=== PATIENT | female | born 1940 | race Caucasian/White ===

== ENCOUNTER 2018-07-16 23:11 | Emergency (ER) | payer MEDICARE, OTHER ==
[2018-07-16 23:20] VITALS: RESP 16
--- NOTE | 2018-07-17 01:23 | ED PDOC ---
HPI: Psych/Substance Abuse Time Seen by Provider: 07/16/18 23:31 Chief Complaint (Nursing): Psychiatric Evaluation Chief Complaint (Provider): Psychiatric Evaluation History Per: Patient, Family (daughters) History/Exam Limitations: no limitations Current Symptoms Are (Timing): Still Present Suicide/Self Injury Attempted (Context): None Modifying Factor(s): None Associated Symptoms: Depression Additional Complaint(s): 77 year old Hisapnic female with a history of CAD, epiliepsy, depression and dementia presents to the ED for evaluation of depression. Daughters are at bedside and provide history with patient. They report patent is becoming increasingly depression and experienced daily episodes of crying and hopel essness. They spoke with her mental health provider, Dr. Zuhair Ocampo who advised she should come to the ED for admission to [facility] for decompensated depression. She and her daughters report compliance with all medications. Past Medical History Reviewed: Historical Data, Nursing Documentation, Vital Signs Vital Signs: Last Vital Signs Temp 98 F 07/16/18 23:13 Pulse 76 07/16/18 23:13 Resp 16 07/16/18 23:13 BP 155/86 H 07/16/18 23:13 Pulse Ox 94 L 07/16/18 23:13 - Medical History PMH: CAD, Cardia Arrhythmia, HTN, TIA Denies: Arthritis, CHF, COPD, HIV, Hypercholesterolemia, Hypothyroidism, Chronic Kidney Disease, Rheumatoid Arthritis - Surgical History Surgical History: No Surg Hx - Family History Family History: States: Unknown Family Hx - Social History Current smoker - smoking cessation education provided: No Alcohol: None Drugs: Denies - Home Medications Home Medications: Ambulatory Orders Medication Instructions Recorded Acetaminophen/Codeine Phosph 1 tab PO Q6 PRN 02/28/15 [Acetaminophen and Codeine Phosphate #3 300 mg] Aspirin [Ecotrin] 81 mg PO DAILY 02/28/15 Atorvastatin [Lipitor] 20 mg PO DAILY 02/28/15 Carvedilol [Coreg] 1 tab PO BID 02/28/15 Clonazepam 0.5 mg PO Q12 02/28/15 Eszopiclone [Lunesta] 1 mg PO HS PRN 02/28/15 Levothyroxine Sodium 0.05 mg PO HS 02/28/15 Lubiprostone [Amitiza] 24 mcg PO TID PRN 02/28/15 Sertraline Hydrochloride 1.5 tab PO DAILY 02/28/15 [Sertraline] Furosemide [Lasix] 40 mg PO DAILY #0 tab 03/01/15 Warfarin [Coumadin] 1 mg PO DAILY 03/28/15 Aluminum Hydroxide/Magnesium 30 ml PO Q6 PRN #0 udc 03/31/15 [Maalox Plus 30 ml] Famotidine [Pepcid] 20 mg PO BID #0 tab 03/31/15 - Allergies Allergies/Adverse Reactions: Allergies Allergy/AdvReac Type Severity Reaction Status Date / Time No Known Allergies Allergy Verified 02/28/15 02:14 Review of Systems ROS Statement: Except As Marked, All Systems Reviewed And Found Negative Psych: Positive for: Depression Physical Exam - Reviewed Nursing Documentation Reviewed: Yes Vital Signs Reviewed: Yes - Physical Exam Appears: Positive for: Non-toxic, No Acute Distress Head Exam: Positive for: ATRAUMATIC, NORMAL INSPECTION, NORMOCEPHALIC Skin: Positive for: Normal Color, Warm, Dry. Negative for: Rash Eye Exam: Positive for: EOMI, Normal appearance, PERRL Neck: Positive for: Normal, Painless ROM, Supple Cardiovascular/Chest: Positive for: Regular Rate, Rhythm. Negative for: Murmur Respiratory: Positive for: Normal Breath Sounds. Negative for: Respiratory Distress Gastrointestinal/Abdominal: Positive for: Normal Exam, Soft. Negative for: Tenderness Back: Positive for: Normal Inspection. Negative for: L CVA Tenderness, R CVA Tenderness Extremity: Positive for: Normal ROM. Negative for: Deformity Neurological/Psych: Positive for: Awake, Alert, Normal Tone. Negative for: Motor/Sensory Deficits - ECG O2 Sat by Pulse Oximetry: 94 (RA) Pulse Ox Interpretation: Normal Medical Decision Making Medical Decision Makin:12 Impression: 77 year old female with decompensated depression Initial Plan: --CMP --CBC --PTT --PT --CXR --UA --EKG --Crisis evaluation 01:20 Discussed with crisis. She will be admitted. Diagnosis is decompensated depression. 01:45 Patient was evaluated by crisis and is unwilling to be admitted. As per crisis, she does not requires further screening and will be discharged home to follow up with Dr. Zuhair Ocampo. Diagnosis is depression. Scribe Attestation: Documented by Huyen Washington, acting as a scribe for Akash Parra MD. Provider Scribe Attestation: All medical record entries made by the Scribe were at my direction and personally dictated by me. I have reviewed the chart and agree that the record accurately reflects my personal performance of the history, physical exam, medical decision making, and the department course for this patient. I have also personally directed, reviewed, and agree with the discharge instructions and disposition. Disposition - Clinical Impression Clinical Impression: Depression - Patient ED Disposition Is Patient to be Admitted: No - Disposition Referrals: Zuhair Ocampo APN [Staff Provider] - Disposition: Routine/Home Disposition Time: 01:45 Condition: STABLE Instructions: Depression Forms: [facility] (Indian) Print Language: BANGLADESHI
[2018-07-17 02:59] VITALS: BP 137/65; PULSE 81; TEMP 98.4; O2SAT 95
--- NOTE | 2018-07-17 08:24 | RAD ---
Date of service: 07/17/2018 HISTORY: admit COMPARISON: 03/28/2015 FINDINGS: LUNGS: No consolidation. Granulomatous changes suggested PLEURA: No significant pleural effusion identified, no pneumothorax apparent. CARDIOVASCULAR: No aortic atherosclerotic calcification present. Cardiomegaly-similar . Mild pulmonary venous congestion-less now than before. OSSEOUS STRUCTURES: Partially visualize cervical hardware fusion parts Bilateral shoulder arthrosis VISUALIZED UPPER ABDOMEN: Right upper quadrant cholecystectomy clips OTHER FINDINGS: None. IMPRESSION: Cardiomegaly-similar mild pulmonary venous congestion-less now than before. No consolidation. Granulomatous changes. Similar
== END 2018-07-17 02:50 | disposition home or self-care (01) ==
LOC: H.ER 23:11
DX: F32.9 Major depressive disorder, single episode, unspecified (principal); Z00.8 Encounter for other general examination; Z86.73 Personal history of transient ischemic attack (TIA), and cerebral infarction without residual deficits; I10 Essential (primary) hypertension; Z79.01 Long term (current) use of anticoagulants; Z79.82 Long term (current) use of aspirin